=== PATIENT | male | born 1975 | race Caucasian/White ===

== ENCOUNTER 2022-09-13 10:34 | Inpatient (IN) | payer BC, SELFPAY ==
[2022-09-13] VITALS (19 sets, daily range): BP systolic 176–212; BP diastolic 116–145; PULSE 80–115; RESP 12–22; TEMP 36.4–37.3; O2SAT 93–99; BMI 37.8
--- NOTE | ~2022-09-13 | CT_ITS ---
EXAMINATION: CTA BRAIN/CAROTID DATE: 09/13/2022 11:46 INDICATION: Left-sided weakness TECHNIQUE: Computed tomographic angiography (CTA) of the head and neck was performed with 100 mL Omni paque-350 intravenous contrast. Multiplanar reconstructions and maximum intensity projection 3D-recon structions of the carotid arteries and of the intracranial arteries were created by the technologist on a separate workstation. Automated exposure control and iterative reconstruction technique were em ployed.The dose-length product was 1202.90 mGy-cm. COMPARISON: None. FINDINGS: Carotid arteries: Aortic arch is normal in caliber with no evident atherosclerotic plaque or dissection. No evident ath erosclerotic plaque with 0% stenosis of the right and left carotid bulbs relative to normal distal ar jim lumen diameter (NASCET criteria). Bilateral thyroid nodules the largest on the right measuring 2 .5 cm. Cervical soft tissues are unremarkable. Mild mosaic attenuation in the visualized upper lungs likely related to expiratory phase of imaging. Mild cervical spondylosis. Intracranial arteries Right vertebral artery is dominant. There is no hemodynamically significant stenosis in the vertebral , basilar and internal carotid arteries. Vertebral arteries are codominant. There are no aneurysms id entified. Both A1 and P1 segments are patent. The right P1 segment is diminutive with majority of fl ow to the right posterior cerebral artery supplied via a larger caliber right posterior communicating artery. There is also a patent anterior communicating artery. Cerebral arterial arborization appears symmetric. IMPRESSION: 1. 0% stenosis of the right and left carotid bulbs relative to normal distal artery lumen diameter (N ASCET criteria). 2. No hemodynamically significant stenosis, aneurysm or dissection in the cerebral arteries. Reviewed, dictated and finalized at location A. RK OPERATOR IMPRESSION: 1. 0% stenosis of the right and left carotid bulbs relative to normal distal ar jim lumen diameter (NASCET criteria). 2. No hemodynamically significant stenosis, aneurysm or dissection in the cereb ral arteries.
--- NOTE | ~2022-09-13 | MR_ITS ---
EXAMINATION: MR brain/brain stem wo/w con DATE: 09/13/2022 18:01 INDICATION: L sided weakness and facial droop, slurred speech. TECHNIQUE: Magnetic resonance imaging (MRI) of the brain and brainstem was performed with 20 mL Multi Julio C intravenous contrast. Sequences included sagittal and axial T1-weighted SE, axial diffusion-rocio ghted FS EPI ASSET, axial T2*-weighted GRE, axial T2-weighted FLAIR Propeller, and axial T2-weighted Propeller. Postcontrast axial and coronal T1-weighted SE was obtained. Apparent diffusion coefficient (ADC) maps were created. COMPARISON: CT brain and CTA brain carotid, same date FINDINGS: Focal restricted diffusion in the posterior limb of the right internal capsule and in right periventr icular white matter. No intracranial hemorrhage. Flow voids are preserved. Moderate bilateral mastoid fluid. Mild atrophy. No significant chronic white matter change. No abnormal enhancing lesions. The basal cisterns are patent. IMPRESSION: Focal acute right periventricular and internal capsule infarcts. Reviewed, dictated and finalized at location K. STOCK DRIER TENDER
--- NOTE | ~2022-09-13 | XR_ITS ---
EXAMINATION: XR chest 1V DATE: 09/13/2022 10:47 INDICATION: Left hemiparesis. TECHNIQUE: A single frontal view of the chest was obtained. COMPARISON: None. FINDINGS: The chest demonstrates clear lungs without pneumonia, pleural effusion, or pneumothorax. Th e heart size is normal. IMPRESSION: 1. No acute cardiopulmonary disease. Reviewed, dictated and finalized at location A. INERY MOVER
--- NOTE | ~2022-09-13 | CT_ITS ---
EXAMINATION: CT brain wo con DATE: 09/13/2022 10:46 INDICATION: Left-sided numbness, tingling, weakness. TECHNIQUE: Computed tomography (CT) of the head was performed without intravenous contrast. The mA wa s adjusted according to patient size. Iterative reconstruction technique was employed. Exam dose: 60 5.33 mGy-cm total exam DLP. COMPARISON: None FINDINGS: No intracranial mass lesion or hemorrhage or cerebrovascular accident is detected. No midli ne shift or mass effect. Normal ventricular size. No subdural or epidural hematoma. Minimal bilateral mastoid air cell effusions. Most of the mastoid air cells are normally developed an d aerated bilaterally. Included paranasal sinuses are unremarkable. No fracture or bone destruction of the cranial vault. IMPRESSION: No significant abnormality; no intracranial hemorrhage Dr. Marquez telephoned the report on 09/13/2022 at 1051 hours to emergency room physician Dr. Tejeda. Reviewed, dictated and finalized at Location A. Reviewed, dictated and finalized at location A. OECONOMICS PROFESSOR IMPRESSION: No significant abnormality; no intracranial hemorrhage Dr. Marquez telephoned the report on 09/13/2022 at 1051 hours to emergency room buddy Tejeda.
--- NOTE | 2022-09-13 10:41 | ECG_ITS ---
Measurements Intervals [place] Rate: 110 P: 48 [place]: 168 QRS: -35 QRSD: 113 T: 42 QT: 339 QTc: 459 Interpretive Statements SINUS TACHYCARDIA INCOMPLETE RIGHT BUNDLE BRANCH BLOCK ABNORMAL ECG NO PREVIOUS ECG AVAILABLE FOR COMPARISON Electronically Signed On 09-13-2022 11:01:13 LASTING ROOM MACHINE OPERATOR by Brendan Pool D.O.
[2022-09-13 10:55] LABS: Basophils Absolute Auto 0.1 K/mm3 (0.0-0.1); Basophils Percent Auto 0.6 % (0.2-1.2); Eosinophils Absolute Auto 0.2 K/mm3 (0-0.3); Eosinophils Percent Auto 1.4 % (0-4.4); Hematocrit 47.3 % (42.0-52.0); Hemoglobin 15.9 g/dL (14.0-18.0); Immature Granulocyte Absolute 0.08 K/mm3 (0.00-0.031); Immature Granulocyte Percent A 0.6 % (0-0.5); Lymphocytes Absolute Auto 2.45 K/mm3 (0.9-3.2); Lymphocytes Percent Auto 18.5 % (18.3-44.2); Mean Corpuscular HGB Conc 33.6 g/dl (32-36); Mean Corpuscular Hemoglobin 29.3 pg (26-34); Mean Corpuscular Volume 87.3 fl (80-100); Mean Platelet Volume 9.6 fl (7.4-10.4); Monocytes Absolute Auto 0.9 K/mm3 (0.1-0.6); Monocytes Percent Auto 7.1 % (2.6-8.5); Neutrophils Absolute Auto 9.5 K/mm3 (1.3-6.7); Neutrophils Percent Auto 71.8 % (45.5-73.1); Platelet Count Result 231 k/mm3 (150-375); Red Blood Count 5.42 M/mm3 (4.6-6.20); Red Cell Distribution Width 13.4 % (11.5-14.5); White Blood Count 13.3 K/mm3 (4.5-10.0)
--- NOTE | 2022-09-13 10:57 | ED.CHESTPAIN ---
HPI - Chest Pain General Chief Complaint: Suspected CVA Stated Complaint: L FACIAL DROOP, ARM NUMBNESS Time Seen by Provider: 09/13/22 10:37 Source: RN notes reviewed History of Present Illness HPI narrative: Patient presents emergency department from home for left-sided weakness and numbness. Patient states symptoms began at 9:45 AM this morning. He states he was sitting at his desk working from which he works at home he states he began to feel numbness in his left arm and was having trouble typing with his left arm he states he also noted left-sided facial droop states some coffee had fallen out of the left side of his mouth he states he continues to feel numbness in the left side of his face as well as in his left arm and mild numbness in his left leg he denies any vision changes he denies any chest pain shortness of breath abdominal pain nausea or vomiting. He denies any change since symptom onset Related Data Allergies Allergy/AdvReac Type Severity Reaction Status Date / Time No Known Allergies Allergy Verified 09/13/22 12:41 Review of Systems Review of Systems: Gen.: Denies fevers or chills Eyes: Denies eye pain or visual change ENT: Denies congestion Respiratory: Denies shortness of breath or cough CV: Denies chest pain or palpitations GI: Denies abdominal pain nausea, emesis or diarrhea Musculoskeletal: Denies back pain or muscle pain Neuro: See HPI Skin: Denies rash Except as documented, all other systems reviewed and negative [facility] Past Medical History Medical History (Updated 09/13/22 @ 14:50 by Florentino Tejeda DO) Patient denies significant medical history Social History Social History (Updated 09/13/22 @ 10:59 by Florentino Tejeda DO) Smoking status: Current every day smoker Exam Narrative: APPEARANCE: No acute distress, nontoxic, resting in bed HEENT: Normocephalic, atraumatic, OMM, EYES: PERRL, EOMI NECK: Supple, nontender, full range of motion without pain, no meningismus RESPIRATORY: No respiratory distress, clear to auscultation bilaterally with no rhonchi wheezing or rales CARDIOVASCULAR: RRR s murmur ABDOMINAL: Soft, nontender, nondistended MUSCULOSKELETAL: Moves all extremities. No clubbing, cyanosis or edema. NEURO: A and O ?3, following commands, speech normal, left-sided facial droop, muscle strength 5 out of 5 in the bilateral upper and lower extremities, no pronator drift SKIN:: Warm, dry. Normal Color PSYCHIATRIC: Normal affect/mood Course Course Emergency Course: Patient symptoms are improving in the emergency department. Muscle strength is 5 out of 5 bilateral upper and lower extremities only notes mild numbness in the left side of the face Called and discussed with Dr. Haque at [facility] for stroke discussed the patient's symptoms and improving symptoms at this time with no debilitating symptoms and improvement of symptoms recommend the patient is not a tPA candidate but patient not a tPA candidate we will keep our facility Discussed with Dr. Willard presentation work-up request patient received aspirin 81 mg at this time request patient receive a dose of hydralazine for blood Pressure control Discussed with DORIE Kelly for Dr. Sun agrees with admission Discussed with patient and family results of workup and diagnosis. Discussed need for admission. Patient and family understand and agree to current treatment plan Patient states feeling much better states all symptoms resolved itself mild numbness at lip Vital Signs Vital signs: Vital Signs Pulse Rate 115 H 09/13/22 10:49 Respiratory Rate 22 H 09/13/22 10:49 Blood Pressure 201/145 H 09/13/22 10:49 Pulse Oximetry 96 09/13/22 10:49 Oxygen Delivery Room Air 09/13/22 10:49 Temperature 99.2 F 09/13/22 10:56 Pulse Rate 93 09/13/22 13:00 Respiratory Rate 17 09/13/22 13:00 Blood Pressure 184/118 H 09/13/22 13:00 Pulse Oximetry 97 09/13/22 13:00 Oxygen Delivery Room Air 09/13/22 10:
[2022-09-13 11:03] LABS: Glucose Point of Care 165 mg/dl (65-105)
[2022-09-13 11:04] LABS: Alanine Aminotransferase 21 U/L (6-50); Albumin Level 4.5 g/dL (3.5-5.1); Alkaline Phosphatase 64 U/L (38-126); Anion Gap 15 mmol/L (8-16); Aspartate Amino Transferase 28 U/L (17-59); Bilirubin,Total 0.6 mg/dL (0.2-1.3); Blood Urea Nitrogen 13 mg/dL (9-20); Calcium 8.8 mg/dL (8.4-10.2); Carbon Dioxide 28 mmol/L (22-30); Chloride 97 mmol/L (98-107); Estimated Glomerular Filt Rate > 60; Glucose 157 mg/dL (65-110); Potassium 3.5 mmol/L (3.4-5.0); Sodium 140 mmol/L (137-145)
[2022-09-13 11:06] LABS: INR 0.9; Prothrombin Time 11.9 Seconds (11.1-14.7)
[2022-09-13 11:07] LABS: Partial Thromboplastin Time 31.1 SECONDS (22.3-36.8)
[2022-09-13 12:14] LABS: SARS-CoV-2 RNA PCR Negative
[2022-09-13] MEDS: ASPIRIN 81 MG CHEWABLE TABLET PO (12:42)
[2022-09-13] MEDS: hydrALAZINE HCL 20 MG/ML VIAL 10 MG IV PUSH (12:42)
--- NOTE | 2022-09-13 14:30 | PM.IMHP ---
H&P: HPI History of Present Illness Date/Time: 09/13/22 14:30 Chief Complaint: Left side weakness and numbness. Narrative: This is a 47-year-old male smoker who presented to the ED for evaluation of left sided weakness and numbness. 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 He participated in a conference call at 09:30 and not long thereafter while typing on his computer he started to have difficulties type being with his left hand and the left arm and left side of his face became numb and tingly. He got up to take a break from his desk and went to get some coffee at which time he had some difficulty swallowing and coffee was dribbling out the side of his mouth. He called his who noticed that his speech seemed to be a bit slurred and he came in for evaluation within an hours time. On arrival to the ER his blood pressure was 201/145 and it has been persistently elevated since arrival. He admits that he has not seen a doctor for quite some time however a couple of weeks ago his blood pressure was 150/110 at urgent care (he was there for bilateral, non painful red eyes). Head CT and CTA of the head and neck showed no acute intracranial findings, 0% stenosis of the internal carotid arteries, and no hemodynamically significant stenosis, aneurysm, or dissection of the cerebral arteries. Within a couple of hours his symptoms had nearly resolved though he continues to have mild paresthesias on the left side of his mouth. He denies vertigo, visual changes, chest pain, and palpitations. Case was discussed with stroke team at [facility] and they did not feel he would be a candidate for tPA. Neurology was then consulted and Dr. Willard recommend starting the patient on aspirin 81 milligrams daily and blood pressure control with a goal systolic of 180. Review of Systems Review of Systems: Twelve systems were reviewed. He has gained some weight over the years, especially since he has been working at home. No cold or flu symptoms. No chest pain or shortness of breath. No nausea or vomiting. Except as documented, all other systems were reviewed and are negative. [facility] Past Medical History Medical History (Updated 09/13/22 @ 22:40 by Leticia Wilkins PA-C) Patient denies significant medical history Tobacco abuse Surgical History Surgical History No history of previous surgery Family History Family History Mother Hypertension Diverticulitis Father DVT (deep venous thrombosis) Skin cancer Social History Social History (Updated 09/13/22 @ 22:35 by Leticia Wilkins PA-C) Social History: Surrogate medical decision maker: Jesica Vaca, spouse. Code status: Full code. Smoking packs per day: 1 Smoking cigarettes per day: 20.0 Years smoked: 14 Smoking pack-years: 14.00 Smoking status: Current every day smoker Tobacco type: cigarettes Smokeless tobacco user: chewing tobacco Alcohol intake: current Drinks per week: 10 (On weekends) Substance use: never Substance use type: does not use Has the Lack of Transportation Kept You From Medical Appointments or From Getting Medications?: No Within the Past 12 Months, Were You Worried Whether Your Food Would Run Out Before You Got Money to Buy More?: Never True What is Your Housing Situation Today?: I Have Housing Are You Worried That in the Next 2 Months, You May Not Have Your Own Housing to Live In?: No Do You Have Trouble Paying Your Heating Or Electricity Bill?: No Do You Have Trouble Paying For Medicines?: No Are You Currently Unemployed and Looking for Work?: No Highest Level of Education Completed: Bachelor's Degree Do You Have Trouble With Childcare or the Care of a Family Member?: No Living arrangements: with family Spiritual care concerns: No Agree to blood products: Yes Med
--- NOTE | 2022-09-13 15:29 | ADMGEN ---
This patient, Sina Vaca, was admitted to IMU Room 203-01. Patient/family oriented to hospital policies and general routines including ID bracelet, bed and alarms, visiting hours, pain management, procedures, bathroom and other care routines, personal items, smoking policy, room service/diet, and visiting hours. Information on how to activate the Rapid Response Team has been discussed. Patient/Family are encouraged to report perceived risks to care and to ask questions if they do not understand what they are told or what they should do.
[2022-09-13 15:55] LABS: Glucose Point of Care 86 mg/dl (65-105)
[2022-09-13] MEDS: LOSARTAN POTASSIUM 25 MG TABLET PO (17:02)
[2022-09-13 19:21] LABS: Troponin I 0.032 ng/mL (0.000-0.034)
[2022-09-13 20:44] LABS: Glucose Point of Care 110 mg/dl (65-105)
[2022-09-14] VITALS (14 sets, daily range): BP systolic 174–186; BP diastolic 101–125; PULSE 68–88; RESP 20; TEMP 36.2–37; O2SAT 97–100
[2022-09-14 04:47] LABS: Basophils Absolute Auto 0.1 K/mm3 (0.0-0.1); Basophils Percent Auto 0.7 % (0.2-1.2); Eosinophils Absolute Auto 0.3 K/mm3 (0-0.3); Eosinophils Percent Auto 2.2 % (0-4.4); Hematocrit 41.4 % (42.0-52.0); Hemoglobin 13.9 g/dL (14.0-18.0); Immature Granulocyte Absolute 0.05 K/mm3 (0.00-0.031); Immature Granulocyte Percent A 0.4 % (0-0.5); Lymphocytes Percent Auto 20.7 % (18.3-44.2); Mean Corpuscular HGB Conc 33.6 g/dl (32-36); Mean Corpuscular Hemoglobin 29.2 pg (26-34); Mean Platelet Volume 9.4 fl (7.4-10.4); Monocytes Absolute Auto 0.8 K/mm3 (0.1-0.6); Monocytes Percent Auto 7.4 % (2.6-8.5); Neutrophils Absolute Auto 7.6 K/mm3 (1.3-6.7); Neutrophils Percent Auto 68.6 % (45.5-73.1); Platelet Count Result 197 k/mm3 (150-375); Red Blood Count 4.76 M/mm3 (4.6-6.20); Red Cell Distribution Width 13.7 % (11.5-14.5); White Blood Count 11.1 K/mm3 (4.5-10.0)
[2022-09-14 05:00] LABS: Alanine Aminotransferase 22 U/L (6-50); Albumin Level 3.9 g/dL (3.5-5.1); Alkaline Phosphatase 59 U/L (38-126); Anion Gap 8 mmol/L (8-16); Aspartate Amino Transferase 31 U/L (17-59); Bilirubin,Total 1.2 mg/dL (0.2-1.3); Blood Urea Nitrogen 9 mg/dL (9-20); Calcium 8.4 mg/dL (8.4-10.2); Carbon Dioxide 28 mmol/L (22-30); Chloride 100 mmol/L (98-107); Cholesterol 201 mg/dL (0-200); Estimated CRCL calculation 144 ml/min; Estimated Glomerular Filt Rate > 60; Glucose 107 mg/dL (65-110); HDL Direct 29 mg/dL; Potassium 3.3 mmol/L (3.4-5.0); Sodium 136 mmol/L (137-145); Triglycerides 180 mg/dL (<150)
[2022-09-14 05:27] LABS: LDL Cholesterol Direct 133 mg/dL
[2022-09-14 05:34] LABS: Hemoglobin A1C 6.6 % (<5.7)
--- NOTE | 2022-09-14 06:00 | ECHO_ITS ---
Patient Info Name: Sina Vaca Age: 47 years : 1975 Gender: Male Ht: 70 in Wt: 263 lbs BSA: 2.48 m2 HR: 81 bpm BP: 182 / 116 mmHg Technical Quality: Good Exam Date: 09/14/2022 10:56 AM Exam Location: [facility] Patient Status: Inpatient Admit Date: 09/13/2022 Staff Ordering Physician: Florentino Tejeda DO Certified Technician: Adelaida Ceja RDCS Attending Provider: Ashu Sun MD Referring Physician: Ileana CASAS; Exam Type: CA echo doppler color flow Study Info Indications - LV function Complete two-dimensional, color flow and Doppler transthoracic echocardiogram is performed. Summary 1. Complete two-dimensional, color flow and Doppler transthoracic echocardiogram is performed. 2. Left ventricular chamber dimension is mildly enlarged. 3. Left ventricular systolic function is normal, estimated at 55-60%. 4. There is mildly increased left ventricular wall thickness. 5. The left ventricular diastolic function is grade I diastolic dysfunction. 6. E/e' 8 is minimally elevated. 7. There is trace pulmonic regurgitation. 8. The aortic root size at the sinus of Valsalva is borderline dilated at 4.1 cm. Left Ventricle E/e' 8 is minimally elevated. Left ventricular chamber dimension is mildly enlarged. Left ventricular systolic function is normal, estimated at 55-60%. There is mildly increased left ventricular wall thickness. The left ventricular diastolic function is grade I diastolic dysfunction. Right Ventricle Right ventricular systolic function is normal and with normal TAPSE 2.2 cm. Right ventricular chamber dimension is normal. Left Atria Left atrial chamber dimension is normal. Right Atria Right atrial chamber dimension is normal. Aortic Valve The aortic valve is trileaflet. There is no aortic valve stenosis. There is no aortic valve regurgitation. Pulmonic Valve There is trace pulmonic regurgitation. Mitral Valve There is no mitral valve stenosis. There is no mitral valve regurgitation. Tricuspid Valve There is no tricuspid valve regurgitation. Pericardium/Pleural There is no pericardial effusion. Inferior Vena Cava Normal inferior vena cava with >50% collapse upon inspiration consistent with normal right atrial pressure, 5 mmHg. Aorta The aortic root size at the sinus of Valsalva is borderline dilated at 4.1 cm. Left Ventricular Outflow Tract Name Value Normal LVOT 2D LVOT Diameter 2.2 cm LVOT Doppler LVOT Peak Gradient 4 mmHg LVOT Mean Gradient 3 mmHg LVOT VTI 21 cm LVOT VTI/AV VTI Ratio 0.9 LVOT Stroke Volume 80 ml LVOT CO 6.3 l/min LVOT CI 2.6 l/min/m2 Mitral Valve Name Value Normal MV Doppler
[2022-09-14] MEDS: ASPIRIN 81 MG ENTERIC TABLET PO (08:26)
--- NOTE | 2022-09-14 10:34 | WPDNEURCNPN ---
Assessment and Plan Assessment and plan (1) Cerebrovascular accident: Code(s): I63.9 - Cerebral infarction, unspecified Status: Acute (2) HTN (hypertension): Code(s): I10 - Essential (primary) hypertension Status: Acute (3) Hyperlipidemia: Code(s): E78.5 - Hyperlipidemia, unspecified Status: Acute (4) Tobacco abuse: Code(s): Z72.0 - Tobacco use Status: Acute (5) Diabetes: Code(s): E11.9 - Type 2 diabetes mellitus without complications Status: Acute Plan Mr. Vaca is a 47 year old male with newly diagnosed HTN, HLD, DM and a history of chronic smoking presenting with left hemisensory loss/hemiparesis, which self-resolved. MRI confirmed R perventricular/internal capsule stroke. Likely due to small vessel disease. - Recommend ASA and Plavix x 3 weeks, then ASA monotherapy - Will need statin on discharge with goal LDL < 70 - Discussed importance of smoking sensation - goal BP < 150 systolic Consult date: 09/14/22 Time Seen: 10:35 Reason for consult: Concern for stroke vs TIA HPI: Sina Vaca is a 47 year old male with poor medical care who presented due to concerns for left sided weakness. Patient was in his usual state of health when he developed left sided numbness and weakness (face, arm, and leg) while sitting in his desk. The numbness initially started in his left arm and he noted that he was having trouble with typing. He presented to [place] ED due to these concerns. BP on arrival was 201/145. In ED his strength was normal. The only residual symptom was left facial numbness. CT head and CTA were negative. Case was discussed with [facility] stroke team and patient was not a candidate for tPA due to resolving/minor symptoms. The left facial numbness resolved as well and patient feels back to baseline with no residual symptoms. His BP was treated, and has been mostly in the 180s systolic. LDL was 133 and Hgb 6.6. Patient is a daily smoker. MRI brain showed R periventricular and internal capsule infarct. Review of Systems Constitutional: Constitutional: Reports no additional constitutional complaints Eyes: Eyes: Reports no additional eye complaints ENT: Reports system reviewed and no additional complaints, except as documented Cardiovascular: Cardiovascular: Reports no additional cardiovascular complaints Respiratory: Respiratory: Reports no additional respiratory complaints Gastrointestinal: Gastrointestinal: Reports no additional gastrointestinal complaints Genitourinary: Genitourinary: Reports no additional male genitourinary complaints Musculoskeletal: Musculoskeletal: Reports no additional musculoskeletal complaints Integumentary/Breasts: Skin/Breast: Reports system reviewed and no additional complaints, except as docu Neurologic: Reports system reviewed and no additional complaints, except as documented Psychiatric: Psychiatric: Reports no additional psychiatric complaints PMFSH Past Medical History Medical History Patient denies significant medical history Tobacco abuse Surgical History Surgical History No history of previous surgery Family History Family History Mother Hypertension Diverticulitis Father DVT (deep venous thrombosis) Skin cancer Social History Social History Social History: Surrogate medical decision maker: Jesica Vaca, spouse. Code status: Full code. Smoking packs per day: 1 Smoking cigarettes per day: 20.0 Years smoked: 14 Smoking pack-years: 14.00 Smoking status: Current every day smoker Tobacco type: cigarettes Smokeless tobacco user: chewing tobacco Alcohol intake: current Drinks per week: 10 (On weekends) Substance use: never Substance use type: does not use Has the [place]
--- NOTE | 2022-09-14 14:20 | PM.IMPN ---
Progress Note: A&P Assessment and Plan (1) Cerebrovascular accident: Code(s): I63.9 - Cerebral infarction, unspecified Status: Acute (2) Hypertensive urgency: Code(s): I16.0 - Hypertensive urgency Status: Acute (3) Hyperglycemia: Code(s): R73.9 - Hyperglycemia, unspecified Status: Acute (4) Tobacco abuse: Code(s): Z72.0 - Tobacco use Status: Acute Plan # acute onset left-sided weakness and paresthesia face and arm: Brain CT and CTA of the head and neck showed no findings. His discussed with stroke team at [facility] did not feel the patient would be candidate for tPA due to resolving/minor symptoms. Started on aspirin. MRI positive for focal acute right periventricular and internal capsule infarct. Neurology consulted. PT OT ST. Statin with an LDL goal of less than 70 current LDL 133. No smoking discussed tobacco cessation. Goal BP less than 150 systolic. Allow permissive hypertension for 02/25/2048. Echo: EF 55-60% grade 1 diastolic dysfunction no significant valvular abnormality Aspirin Plavix for 3 weeks followed by aspirin lifelong # type 2 diabetes mellitus A1c of 6.6. Discussed medication diet and physical activity. Start metformin at discharge. Diabetes Education # hypertensive emergency: Allow permissive hypertension due to acute stroke. Goal blood pressure less than 130/80. Started on losartan. Received 25 mg x 1. Will start losartan 50 mg daily # tobacco abuse # DVT prophylaxis # code status: Full code Subjective Date/time seen: 09/14/22 14:20 Interval history: HPI:This is a 47-year-old male smoker who presented to the ED for evaluation of left sided weakness and numbness. 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 He participated in a conference call at 09:30 and not long thereafter while typing on his computer he started to have difficulties type being with his left hand and the left arm and left side of his face became numb and tingly. He got up to take a break from his desk and went to get some coffee at which time he had some difficulty swallowing and coffee was dribbling out the side of his mouth. He called his who noticed that his speech seemed to be a bit slurred and he came in for evaluation within an hours time. On arrival to the ER his blood pressure was 201/145 and it has been persistently elevated since arrival. He admits that he has not seen a doctor for quite some time however a couple of weeks ago his blood pressure was 150/110 at urgent care (he was there for bilateral, non painful red eyes). Head CT and CTA of the head and neck showed no acute intracranial findings, 0% stenosis of the internal carotid arteries, and no hemodynamically significant stenosis, aneurysm, or dissection of the cerebral arteries. Within a couple of hours his symptoms had nearly resolved though he continues to have mild paresthesias on the left side of his mouth. He denies vertigo, visual changes, chest pain, and palpitations. Case was discussed with stroke team at [facility] and they did not feel he would be a candidate for tPA. Neurology was then consulted and Dr. Willard recommend starting the patient on aspirin 81 milligrams daily and blood pressure control with a goal systolic of 180. 09/14/2022: No new complaints. Symptoms has resolved. Discussed lipids and diabetes. Review of Systems Review of Systems: All systems reviewed & are unremarkable except as noted in HPI and below Exam Narrative: General: Well-developed male sitting up in bed no distress. HEENT: Normocephalic, atraumatic. PERRL, EOMI. Sclera anicteric. Oral mucosa moist. Neck: Supple. No carotid bruits. Respiratory: Lungs are clear to auscultation bilaterally. Cardiovascular: Regular rate and rhythm with S1-S2. Gastrointestinal: Abdomen is soft, nontender, and nondistended with positive bowel sounds. Skin: Warm and dry. No rash or lesions on limi
[2022-09-14] MEDS: POTASSIUM CHLORIDE 20 MEQ TABLET 40 MEQ PO (15:00)
[2022-09-14] MEDS: LOSARTAN POTASSIUM 50 MG TABLET PO (15:00)
[2022-09-14] MEDS: hydrALAZINE HCL 20 MG/ML VIAL 10 MG IV PUSH (20:20)
[2022-09-15] VITALS (8 sets, daily range): BP systolic 143–193; BP diastolic 63–124; PULSE 47–88; RESP 12–18; TEMP 36–36.8; O2SAT 95–100; BMI 38.7
[2022-09-15 05:20] LABS: Basophils Absolute Auto 0.1 K/mm3 (0.0-0.1); Basophils Percent Auto 0.6 % (0.2-1.2); Eosinophils Absolute Auto 0.2 K/mm3 (0-0.3); Eosinophils Percent Auto 1.5 % (0-4.4); Hematocrit 42.8 % (42.0-52.0); Hemoglobin 14.4 g/dL (14.0-18.0); Immature Granulocyte Absolute 0.06 K/mm3 (0.00-0.031); Immature Granulocyte Percent A 0.5 % (0-0.5); Lymphocytes Absolute Auto 1.94 K/mm3 (0.9-3.2); Lymphocytes Percent Auto 16.5 % (18.3-44.2); Mean Corpuscular HGB Conc 33.6 g/dl (32-36); Mean Corpuscular Hemoglobin 29.5 pg (26-34); Mean Corpuscular Volume 87.7 fl (80-100); Mean Platelet Volume 9.7 fl (7.4-10.4); Monocytes Absolute Auto 0.7 K/mm3 (0.1-0.6); Monocytes Percent Auto 6.3 % (2.6-8.5); Neutrophils Absolute Auto 8.7 K/mm3 (1.3-6.7); Neutrophils Percent Auto 74.6 % (45.5-73.1); Platelet Count Result 197 k/mm3 (150-375); Red Blood Count 4.88 M/mm3 (4.6-6.20); Red Cell Distribution Width 13.7 % (11.5-14.5); White Blood Count 11.7 K/mm3 (4.5-10.0)
[2022-09-15 05:40] LABS: Alanine Aminotransferase 22 U/L (6-50); Albumin Level 4.1 g/dL (3.5-5.1); Alkaline Phosphatase 63 U/L (38-126); Anion Gap 8 mmol/L (8-16); Aspartate Amino Transferase 24 U/L (17-59); Bilirubin,Total 1.2 mg/dL (0.2-1.3); Blood Urea Nitrogen 9 mg/dL (9-20); Calcium 8.3 mg/dL (8.4-10.2); Carbon Dioxide 25 mmol/L (22-30); Chloride 104 mmol/L (98-107); Estimated CRCL calculation 146 ml/min; Estimated Glomerular Filt Rate > 60; Glucose 109 mg/dL (65-110); Potassium 3.5 mmol/L (3.4-5.0); Sodium 137 mmol/L (137-145)
[2022-09-15] MEDS: CLOPIDOGREL BISULFATE 75 MG TABLET PO (08:36)
[2022-09-15] MEDS: LOSARTAN POTASSIUM 50 MG TABLET PO (08:37)
[2022-09-15] MEDS: ASPIRIN 81 MG ENTERIC TABLET PO (08:37)
--- NOTE | 2022-09-15 10:28 | PM.IMPN ---
Progress Note: A&P Assessment and Plan (1) Cerebrovascular accident: Code(s): I63.9 - Cerebral infarction, unspecified Status: Acute (2) Hypertensive urgency: Code(s): I16.0 - Hypertensive urgency Status: Acute (3) Hyperglycemia: Code(s): R73.9 - Hyperglycemia, unspecified Status: Acute (4) Tobacco abuse: Code(s): Z72.0 - Tobacco use Status: Acute Plan # acute onset left-sided weakness and paresthesia face and arm: Brain CT and CTA of the head and neck showed no findings. His discussed with stroke team at [facility] did not feel the patient would be candidate for tPA due to resolving/minor symptoms. Started on aspirin. MRI positive for focal acute right periventricular and internal capsule infarct. Neurology consulted. PT OT [facility] with an LDL goal of less than 70 current LDL 133. No smoking discussed tobacco cessation. Goal BP less than 150 systolic. Allow permissive hypertension for 02/25/2048. Echo: EF 55-60% grade 1 diastolic dysfunction no significant valvular abnormality Aspirin Plavix for 3 weeks followed by aspirin lifelong # type 2 diabetes mellitus A1c of 6.6. Discussed medication diet and physical activity. Start metformin at discharge. Diabetes Education # hypertensive emergency: Allow permissive hypertension due to acute stroke. Goal blood pressure less than 130/80. Started on losartan. Received 25 mg x 1. started on losartan 50 mg daily will add amlodipine 5 mg now if blood pressure still elevated in the evening will add another 5 mg amlodipine in the evening. Continue to monitor blood pressure. DC when blood pressure in acceptable range Will also screen for sleep apnea with [facility] tonight # tobacco abuse # DVT prophylaxis # code status: Full code Subjective Date/time seen: 09/15/22 10:28 Interval history: HPI:This is a 47-year-old male smoker who presented to the ED for evaluation of left sided weakness and numbness. 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 He participated in a conference call at 09:30 and not long thereafter while typing on his computer he started to have difficulties type being with his left hand and the left arm and left side of his face became numb and tingly. He got up to take a break from his desk and went to get some coffee at which time he had some difficulty swallowing and coffee was dribbling out the side of his mouth. He called his who noticed that his speech seemed to be a bit slurred and he came in for evaluation within an hours time. On arrival to the ER his blood pressure was 201/145 and it has been persistently elevated since arrival. He admits that he has not seen a doctor for quite some time however a couple of weeks ago his blood pressure was 150/110 at urgent care (he was there for bilateral, non painful red eyes). Head CT and CTA of the head and neck showed no acute intracranial findings, 0% stenosis of the internal carotid arteries, and no hemodynamically significant stenosis, aneurysm, or dissection of the cerebral arteries. Within a couple of hours his symptoms had nearly resolved though he continues to have mild paresthesias on the left side of his mouth. He denies vertigo, visual changes, chest pain, and palpitations. Case was discussed with stroke team at [facility] and they did not feel he would be a candidate for tPA. Neurology was then consulted and Dr. Willard recommend starting the patient on aspirin 81 milligrams daily and blood pressure control with a goal systolic of 180. 09/14/2022: No new complaints. Symptoms has resolved. Discussed lipids and diabetes. 09/15/2022: No overnight events noted. Blood pressure trend reviewed. Echo reviewed. Review of Systems Review of Systems: All systems reviewed & are unremarkable except as noted in HPI and below Exam Narrative: General: Well-developed male sitting up in bed no distress. HEENT: Normocephalic, a
[2022-09-15] MEDS: ATORVASTATIN 40 MG TABLET 80 MG PO (11:00)
[2022-09-15] MEDS: amLODIPine BESYLATE 5 MG TABLET PO ×2 (11:00→17:55)
--- NOTE | 2022-09-15 12:19 | WPDNEUROPN ---
Progress Note: A&P Assessment and Plan (1) Cerebrovascular accident: Code(s): I63.9 - Cerebral infarction, unspecified Status: Acute (2) HTN (hypertension): Code(s): I10 - Essential (primary) hypertension Status: Acute (3) Diabetes: Code(s): E11.9 - Type 2 diabetes mellitus without complications Status: Acute (4) Tobacco abuse: Code(s): Z72.0 - Tobacco use Status: Acute (5) Hyperlipidemia: Code(s): E78.5 - Hyperlipidemia, unspecified Status: Acute Plan Mr. Vaca is a 47 year old male with newly diagnosed HTN, HLD, DM and a history of chronic smoking presenting with left hemisensory loss/hemiparesis, which self-resolved. MRI confirmed R perventricular/internal capsule stroke. Likely due to small vessel disease due to uncontrolled hypertension. - Recommend ASA and Plavix x 3 weeks, then ASA monotherapy - Will need statin on discharge with goal LDL < 70 - Discussed importance of smoking sensation - goal BP < 150 systolic Subjective Date/time seen: 09/15/22 12:19 Interval history: Sina Vaca is a 47 year old male with poor medical care who presented due to concerns for left sided weakness. Patient was in his usual state of health when he developed left sided numbness and weakness (face, arm, and leg) while sitting in his desk. The numbness initially started in his left arm and he noted that he was having trouble with typing. He presented to [facility] ED due to these concerns. BP on arrival was 201/145. In ED his strength was normal. The only residual symptom was left facial numbness. CT head and CTA were negative. Case was discussed with [facility] stroke team and patient was not a candidate for tPA due to resolving/minor symptoms. The left facial numbness resolved as well and patient feels back to baseline with no residual symptoms. His BP was treated, and has been mostly in the 180s systolic. LDL was 133 and Hgb 6.6. Patient is a daily smoker. MRI brain showed R periventricular and internal capsule infarct. Patient denies any symptoms. Feeling well. BP has been high still - 180s-190s systolic. He was started on amlodipine and losartan. Review of Systems Review of Systems: All systems reviewed & are unremarkable except as noted in HPI and below Exam Const: General: comfortable and no acute distress HENMT: Mouth: Yes moist mucous membranes Eyes: Pupils: Equal, round and reactive pupils present EOM: EOMs intact bilaterally Resp: Effort & Inspection: normal respiratory effort Auscultation: clear to auscultation bilaterally Cardio: Rate: regular rate Rhythm: regular rhythm GI: GI Palp: Yes Soft to palpation Auscultation: normal bowel sounds Skin: General skin exam: normal color Neuro: Other: AOx3, Pupils equal and reactive bilaterally, EOMI, face symmetric, facial sensation intact, tongue protrudes midline, palate midline. Shoulder shrug normal. Strength 5/5 throughout. Sensation intact throughout. Reflexes 2+ in biceps, patellar, and AJ bilaterally, FNF normal bilaterally. Language comprehension and fluency intact. Gait deferred. Extrem: General: normal to inspection Psych: Mental Status: mental status grossly normal Affect: normal affect Objective Data Vital Signs Vital Signs: Vital Signs - 24 hr 09/14/22 13:20 09/14/22 14:00 09/14/22 16:22 Temperature 36.8 C Pulse Rate 75 84 Respiratory Rate 20 Blood Pressure 186/125 H Pulse Oximetry 100 Oxygen Delivery Room Air 09/14/22 16:00 09/14/22 20:00 09/14/22 20:00 Temperature Pulse Rate 72 79 79 Respiratory Rate 20 Blood Pressure Pulse Oximetry 100 Oxygen Delivery Room Air 09/14/22 20:00 09/14/22 23:44 09/15/22 00:00 Temperature 36.2 C L 36.4 C L Pulse Rate 78 72 87 Respiratory Rate 20 18 Blood Pressure 186/125 H 175/87 H Pulse Oximetry 97 96 Oxygen Delivery 09/15/22 04:00 09/15/22 04:00 09/15/22 08:00 Temperature 36.3 C L 36.0 C L Puls
--- NOTE | 2022-09-15 14:11 | ADMGEN ---
This patient, Sina Vaca, was admitted to Medical Room 254-01. Patient/family oriented to hospital policies and general routines including ID bracelet, bed and alarms, visiting hours, pain management, procedures, bathroom and other care routines, personal items, smoking policy, room service/diet, and visiting hours. Information on how to activate the Rapid Response Team has been discussed. Patient/Family are encouraged to report perceived risks to care and to ask questions if they do not understand what they are told or what they should do.
[2022-09-16] VITALS: BP 151/102; PULSE 70; PULSE 71; RESP 16; TEMP 36.6; O2SAT 97
[2022-09-16 04:00] VITALS: BP 157/95; PULSE 75; PULSE 77; RESP 16; TEMP 36.5; O2SAT 97
[2022-09-16 08:00] VITALS: PULSE 90
[2022-09-16] MEDS: amLODIPine BESYLATE 5 MG TABLET PO (09:06)
[2022-09-16] MEDS: ATORVASTATIN 40 MG TABLET 80 MG PO (09:07)
[2022-09-16] MEDS: CLOPIDOGREL BISULFATE 75 MG TABLET PO (09:07)
[2022-09-16] MEDS: ASPIRIN 81 MG ENTERIC TABLET PO (09:07)
[2022-09-16] MEDS: LOSARTAN POTASSIUM 50 MG TABLET PO (09:07)
[2022-09-16 09:47] VITALS: BP 169/94; PULSE 84; RESP 16; TEMP 36.7; O2SAT 97
[2022-09-16 12:00] VITALS: BP 158/89; PULSE 78; PULSE 85; RESP 16; TEMP 36.6; O2SAT 98
--- NOTE | 2022-09-16 14:22 | PC.NURSE ---
On 09/16/22, the student, [Morenita Hay], provided care and completed [facility] documentation on this patient. I have reviewed the student's documentation and agree with the findings.
--- NOTE | 2022-09-16 14:35 | PM.DS ---
DS: Admitting Diagnosis Discharge Date 09/16/2022 Admitting Diagnosis Left side weakness and numbness. DS: Discharge Diagnosis Discharge Diagnosis (1) Cerebrovascular accident: Code(s): I63.9 - Cerebral infarction, unspecified Status: Acute (2) Hypertensive urgency: Code(s): I16.0 - Hypertensive urgency Status: Acute (3) Hyperglycemia: Code(s): R73.9 - Hyperglycemia, unspecified Status: Acute (4) Tobacco abuse: Code(s): Z72.0 - Tobacco use Status: Acute Plan # acute onset left-sided weakness and paresthesia face and arm: Brain CT and CTA of the head and neck showed no findings. His discussed with stroke team at [facility] did not feel the patient would be candidate for tPA due to resolving/minor symptoms. Started on aspirin. MRI positive for focal acute right periventricular and internal capsule infarct. Neurology consulted. PT OT [facility] with an LDL goal of less than 70 current LDL 133. No smoking discussed tobacco cessation. Goal BP less than 150 systolic. Allow permissive hypertension for 02/25/2048. Echo: EF 55-60% grade 1 diastolic dysfunction no significant valvular abnormality Aspirin Plavix for 3 weeks followed by aspirin lifelong # type 2 diabetes mellitus A1c of 6.6. Discussed medication diet and physical activity. Start metformin at discharge. Diabetes Education # hypertensive emergency: Allow permissive hypertension due to acute stroke. Goal blood pressure less than 130/80. Started on losartan. Received 25 mg x 1. started on losartan 50 mg daily will add amlodipine 5 mg now if blood pressure still elevated in the evening will add another 5 mg amlodipine in the evening. Continue to monitor blood pressure. DC when blood pressure in acceptable range Will also screen for sleep apnea with [facility] tonight # tobacco abuse # DVT prophylaxis # code status: Full code DS: Summary Hospital Course Reason for hospitalization: Chief Complaint: Left side weakness and numbness. Narrative: This is a 47-year-old male smoker who presented to the ED for evaluation of left sided weakness and numbness. 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 He participated in a conference call at 09:30 and not long thereafter while typing on his computer he started to have difficulties type being with his left hand and the left arm and left side of his face became numb and tingly. He got up to take a break from his desk and went to get some coffee at which time he had some difficulty swallowing and coffee was dribbling out the side of his mouth. He called his who noticed that his speech seemed to be a bit slurred and he came in for evaluation within an hours time. On arrival to the ER his blood pressure was 201/145 and it has been persistently elevated since arrival. He admits that he has not seen a doctor for quite some time however a couple of weeks ago his blood pressure was 150/110 at urgent care (he was there for bilateral, non painful red eyes). Head CT and CTA of the head and neck showed no acute intracranial findings, 0% stenosis of the internal carotid arteries, and no hemodynamically significant stenosis, aneurysm, or dissection of the cerebral arteries. Within a couple of hours his symptoms had nearly resolved though he continues to have mild paresthesias on the left side of his mouth. He denies vertigo, visual changes, chest pain, and palpitations. Case was discussed with stroke team at [facility] and they did not feel he would be a candidate for tPA. Neurology was then consulted and Dr. Willard recommend starting the patient on aspirin 81 milligrams daily and blood pressure control with a goal systolic of 180. Hospital Course: 47-year-old male presented with complaint left-sided weakness it is resolved most likely patient had a TIA, MRI showed Focal acute right periventricular and internal capsule infarcts. seen by neurologist patient is
== END 2022-09-16 15:15 | disposition home or self-care (01) | DRG 65 ==
LOC: ANHED 14:50 → ANHIMU 15:11 → ANH2MED 09-15 14:09
PROVIDERS: Physician Assistant; Admitting Provider Internal Medicine; Emergency Provider Emergency Medicine; Visit Provider Family Medicine
DX: I63.89 Other cerebral infarction (principal); G81.94 Hemiplegia, unspecified affecting left nondominant side; I16.1 Hypertensive emergency; I10 Essential (primary) hypertension; R29.702 NIHSS score 2; E11.65 Type 2 diabetes mellitus with hyperglycemia; F17.210 Nicotine dependence, cigarettes, uncomplicated; F17.220 Nicotine dependence, chewing tobacco, uncomplicated; R29.810 Facial weakness; R47.81 Slurred speech; E78.5 Hyperlipidemia, unspecified; Z82.49 Family history of ischemic heart disease and other diseases of the circulatory system; Z20.822 Contact with and (suspected) exposure to COVID-19; Z23 Encounter for immunization
CPT/HCPCS: 36415; 70450; 70496; 70498; 70553; 71045; 80053; 80061; 82948; 83036; 83735; 84484; 85025; 85610; 85730; 90471; 90686; 92523; 93005; 93306; 94762; 96374; 96376; 97161; 97165; 99285; A9270; A9577; G0008; G0378; J0360; Q9967; U0003; U0005

== ENCOUNTER 2023-06-17 08:14 | Outpatient (CLI) | payer BC, SELFPAY ==
[2023-06-17 18:29] LABS: Hemoglobin A1C 7.3 % (<5.7)
[2023-06-17 18:37] LABS: Alanine Aminotransferase 39 U/L (6-50); Albumin Level 3.9 g/dL (3.5-5.1); Alkaline Phosphatase 61 U/L (38-126); Anion Gap 4 mmol/L (8-16); Aspartate Amino Transferase 39 U/L (17-59); Bilirubin,Total 1.1 mg/dL (0.2-1.3); Blood Urea Nitrogen 12 mg/dL (9-20); Calcium 8.7 mg/dL (8.4-10.2); Carbon Dioxide 29 mmol/L (22-30); Chloride 100 mmol/L (98-107); Cholesterol 119 mg/dL (0-200); Estimated Glomerular Filt Rate > 60; Glucose 131 mg/dL (65-110); HDL Direct 29 mg/dL; Potassium 3.9 mmol/L (3.4-5.0); Sodium 133 mmol/L (137-145); Triglycerides 126 mg/dL (<150)
[2023-06-17 18:40] LABS: LDL Cholesterol Direct 70 mg/dL
[2023-06-21 08:39] LABS: Testosterone Total 338 ng/dL (250-1100)
== END 2023-06-17 08:15 | disposition home or self-care (01) ==
LOC: ANHGOSHLAB 08:15
PROVIDERS: PCP Emergency Medicine; Visit Provider Emergency Medicine
DX: R63.5 Abnormal weight gain (principal); E11.69 Type 2 diabetes mellitus with other specified complication; N52.9 Male erectile dysfunction, unspecified
CPT/HCPCS: 36415; 80053; 80061; 83036; 84403; 84443

== ENCOUNTER 2024-05-22 08:03 | Outpatient (CLI) | payer BC, SELFPAY ==
[2024-05-22 13:21] LABS: Alanine Aminotransferase 35 U/L (6-50); Albumin Level 4.3 g/dL (3.5-5.1); Alkaline Phosphatase 66 U/L (38-126); Anion Gap 9 mmol/L (4-12); Aspartate Amino Transferase 66 U/L (17-59); Blood Urea Nitrogen 12 mg/dL (9-20); Calcium 8.6 mg/dL (8.4-10.2); Carbon Dioxide 29 mmol/L (22-30); Chloride 98 mmol/L (98-107); Cholesterol 110 mg/dL (0-200); Estimated Glomerular Filt Rate > 60; Glucose 141 mg/dL (65-110); HDL Direct 31 mg/dL; Potassium 3.9 mmol/L (3.4-5.0); Sodium 136 mmol/L (137-145); Triglycerides 145 mg/dL (<150)
[2024-05-22 13:32] LABS: LDL Cholesterol Direct 62 mg/dL
[2024-05-22 14:03] LABS: Creatinine Urine 223.3 mg/dL
[2024-05-22 14:14] LABS: MALB Creatinine Ratio 65.8 mg/g (0-30); Microalbumin Urine Random 146.9 mg/L (0-16.7)
[2024-05-22 14:36] LABS: Hemoglobin A1C 8.5 % (<5.7)
== END 2024-05-22 08:04 | disposition home or self-care (01) ==
LOC: ANHGOSHLAB 08:05
PROVIDERS: PCP Emergency Medicine; Visit Provider Emergency Medicine
DX: E11.69 Type 2 diabetes mellitus with other specified complication (principal); I63.9 Cerebral infarction, unspecified; E66.9 Obesity, unspecified
CPT/HCPCS: 36415; 80053; 80061; 82043; 83036

== ENCOUNTER 2025-09-03 09:04 | Outpatient (CLI) | payer OTHER, SELFPAY ==
--- NOTE | ~2025-09-03 | US_ITS ---
Clinical history:Umbilical mass. Possible hernia EXAM:Ultrasound soft tissue abdomen TECHNIQUE:Multiple static grayscale images and color Doppler images were obtained of the area of concern about the umbilicus. The study was performed with and without Valsalva maneuver. Comparisons:None available FINDINGS There is a 2.1 cm defect in the anterior wall of the abdomen about the umbilicus. There is a 6.2 x 6.5 x 2.9 cm masslike structure anterior to the defect along the anterior wall of the abdomen. IMPRESSION: 1.There is a 2.1 cm defect in the anterior wall of the abdomen about the umbilicus. 2.There is a 6.2 x 6.5 x 2.9 cm indeterminate masslike structure anterior to the defect in the anterior wall of the abdomen. A hernia is suspected. Other etiologies are possible. A CT of the abdomen and pelvis is recommended for further assessment. Reviewed, dictated and finalized at location Q. IMPRESSION: 1.There is a 2.1 cm defect in the anterior wall of the abdomen about the umbili cus. 2.There is a 6.2 x 6.5 x 2.9 cm indeterminate masslike structure anterior to th e defect in the anterior wall of the abdomen. A hernia is suspected. Other etio logies are possible. A CT of the abdomen and pelvis is recommended for further assessment.
== END 2025-09-03 09:05 | disposition home or self-care (01) ==
PROVIDERS: PCP Nurse Practitioner Family; Visit Provider Nurse Practitioner Family
DX: K42.9 Umbilical hernia without obstruction or gangrene (principal); R19.00 Intra-abdominal and pelvic swelling, mass and lump, unspecified site
CPT/HCPCS: 76705